=== PATIENT | male | born 1990 | race Caucasian/White ===

== ENCOUNTER → 2017-08-05 | Outpatient (CLI) | payer OTHER | LOC: BMCIMAGING 15:14 | PROVIDERS: ATTEND Family Medicine | DX: M25.531 Pain in right wrist (principal) ==

== ENCOUNTER → 2017-09-08 | Outpatient (CLI) | payer OTHER | LOC: BMCIMAGING 08:21 | PROVIDERS: ATTEND Physician Assistant | DX: S62.024D Nondisplaced fracture of middle third of navicular [scaphoid] bone of right wrist, subsequent encounter for fracture with routine healing (principal) ==

== ENCOUNTER 2017-09-20 05:57 | Day surgery (SDC) | payer OTHER ==
[~2017-09-20 05:57] MED LIST: LIDOCAINE 1% 2 ML INJ ID PRN; LR 1,000 ML IV ONE; ceFAZolin 2 GM/SWFI 2 GM/20 ML SYR IVP ONE
[2017-09-20] MEDS ORDERED: ceFAZolin 2 GM/DEXTROSE 100 ML IV ONE (06:00)
[2017-09-20] MEDS ORDERED: BUPIVACAINE/EPI 0.5% 30 ML SDV ONE (06:46)
[2017-09-20] MEDS ORDERED: MIDAZOLAM 2 MG/2 ML VIAL IVP ONE (06:59)
--- NOTE | 2017-09-20 06:59 | PDANEPAE ---
ANE History of Present Illness 26 yo for orif wrist fx ANE Past Medical History - Cardiovascular History Hx Hypertension: No Hx Arrhythmias: No Hx Chest Pain: No Hx Coronary Artery / Peripheral Vascular Disease: No Hx CHF / Valvular Disease: No Hx Palpitations: No - Pulmonary History Hx COPD: No Hx Asthma/Reactive Airway Disease: No Hx Recent Upper Respiratory Infection: No Hx Oxygen in Use at Home: No Hx Sleep Apnea: No Sleep Apnea Screening Result - Last Documented: Negative - Neurologic History Hx Cerebrovascular Accident: No Hx Seizures: No Hx Dementia: No - Endocrine History Hx Diabetes: No - Renal History Hx Renal Disorders: No - Liver History Hx Hepatic Disorders: No - Neurological & Psychiatric Hx Hx Neurological and Psychiatric Disorders: No - Cancer History Hx Cancer: No - Congenital Disorder History Hx Congenital Disorders: No - GI History Hx Gastrointestinal Disorders: Yes Gastrointestinal History Comment: possible "leaky gut" is being worked up - Other Health History Other Health History: psoriasis - Chronic Pain History Chronic Pain: No - Surgical History Prior Surgeries: wisdom teeth removal ANE Review of Systems Review of Systems: - Exercise capacity METS (RN): 6 METS ANE Patient History - Allergies Allergies/Adverse Reactions: amoxicillin [Amoxicillin] Allergy (Verified 09/19/17 15:58) as baby possible hives - Home Medications Home Medications: Herbals/Supplements -Info Only 09/19/17 [Last Taken 09/18/17] - NPO status NPO Since - Liquids (Date): 09/19/17 NPO Since - Liquids (Time): 22:00 NPO Since - Solids (Date): 09/19/17 NPO Since - Solids (Time): 20:00 - Anes Hx Anes Hx: no prior problems - Smoking Hx Smoking Status: Former smoker - Family Anes Hx Family Hx Anesthesia Complications: none ANE Labs/Vital Signs - Vital Signs Blood Pressure: 118/80 Heart Rate: 52 Respiratory Rate: 18 O2 Sat (%): 99 Height: 5 ft 8 in Weight: 58.967 kg ANE Physical Exam - Airway Neck exam: FROM Mallampati Score: Class 2 Mouth exam: normal dental/mouth exam - Pulmonary Pulmonary: no respiratory distress - Cardiovascular Cardiovascular: regular rate and rhythym - ASA Status ASA Status: I ANE Anesthesia Plan Anesthesia Plan: GA w LMA
--- NOTE | 2017-09-20 07:10 | PDHPUP ---
History & Physical Update H&P update statement: This history and physical update is based on an assessment of the patient which was completed after admission or registration (within 24 hours), but prior to the surgery/procedure. H&P update: H&P reviewed & patient examined, no change in patient's condition since H&P completed
[2017-09-20] MEDS ORDERED: fentaNYL 250 MCG/5 ML INJ ONE (07:19)
[2017-09-20] MEDS ORDERED: PROPOFOL/EMULSION 500 MG/50 ML BOTTLE IV ONE (07:19)
[2017-09-20] MEDS ORDERED: DEXAMETHASONE 4 MG/ML VIAL ONE (07:21)
[2017-09-20] MEDS ORDERED: ONDANSETRON 4 MG/2 ML VIAL ONE (07:21)
[2017-09-20] MEDS ORDERED: METOCLOPRAMIDE 10 MG/2 ML VIAL ONE (07:21)
[2017-09-20] MEDS ORDERED: PROPOFOL 200 MG/20 ML VIAL ONE (08:46)
[2017-09-20] MEDS ORDERED: fentaNYL 100 MCG/2 ML INJ IVP PRN (09:32)
[2017-09-20] MEDS ORDERED: HYDROmorphONE/DILAUDID 2 MG/ML INJ IVP PRN (09:32)
[2017-09-20] MEDS ORDERED: oxyCODONE IR 5 MG TAB PO PRN (09:32)
[2017-09-20] MEDS ORDERED: ONDANSETRON 4 MG/2 ML VIAL IVP PRN (09:32)
[2017-09-20] MEDS ORDERED: NALOXONE HCL 0.4 MG/ML INJ IVP PRN (09:32)
[2017-09-20] MEDS ORDERED: PROMETHAZINE HCL 25 MG/ML INJ IVP PRN (09:32)
--- NOTE | 2017-09-20 09:33 | POSTANESTH ---
Post Anesthetic Evaluation Cardiovascular Status: Normal, Stable Respiratory Status: Tx Decrease in SpO2 Level of Consciousness/Mental Status: Alert and Oriented Pain Control: Adequate, Prn Tx Ordered Nausea/Vomiting Control: Adequate, Prn Tx Ordered Complications Possibly Related to Anesthesia: None Noted
--- NOTE | 2017-09-20 10:17 | GOP ---
[f rep st] OPERATIVE REPORT DATE OF OPERATION: 09/20/2017 SURGEON: Clifton Moscoso MD ANESTHESIA: General. PREOPERATIVE DIAGNOSIS: Right mid waist scaphoid fracture. POSTOPERATIVE DIAGNOSIS: Right mid waist scaphoid fracture. PROCEDURE PERFORMED: Right scaphoid open reduction, internal fixation. FINDINGS: ESTIMATED BLOOD LOSS: 5 cc. INDICATIONS: This is a 26-year-old male who sustained this injury about 5 weeks ago in a fall. He i nitially presented to urgent care. X-rays were taken which were read as negative. About a month lat er, he continued to have pain in the wrist with activity. X-ray was taken, which showed a mid waist scaphoid fracture, now with some resorption at the fracture site and about a mm step-off on the obliq ue view. With a delayed presentation of 4 weeks or greater, this may slightly increase the chance of nonunion and a step-off of a mm or more in a scaphoid, both indications for surgical fixation. I di scussed the risks and benefits of both nonoperative and operative treatment with him. Operative cass tment also may offer him a decreased time to union and a faster return to activity. I discussed the risks of surgery. Risks include pain, bleeding, infection, damage to surrounding structures, delayed union, nonunion, stiffness, weakness, or nerve irritation. He understood all these risks and he wis hed to proceed. DESCRIPTION OF PROCEDURE: The patient was in see in the preoperative holding area. He was given opp ortunity to ask more questions. All of his questions were answered. Consent was signed. Surgical s ite was marked. He was transferred to the operative suite. Care was taken to transfer the patient [facility] to the operating room table. Care was taken to pad all bony prominences prior to inductio n of anesthesia. General anesthesia was induced by Anesthesia team. Time-out was called including S urgical and Anesthesia teams, confirming the surgical site and procedure to be performed. 2 g of Anc ef were given prior to incision. The right upper extremity was prepped and draped in the usual steri le fashion. Esmarch was used to exsanguinate the right upper extremity. Tourniquet was inflated to 250 mmHg. I made a 1.5 cm incision just distal to Chun's tubercle, identified the contents of the 4th extensor compartment, identified the EPL, and retracted the EPL laterally, identified the wrist c apsule, split the wrist capsule longitudinally, identified the scaphoid. I placed 1 of the guidewire s for the Acutrak mini into the proximal pole short of the fracture site and, with manipulation of th e guidewire, I passed it into the distal pole and checked the reduction. I was very happy with the r eduction, which was near anatomic, passed this down the central axis to the noted distal pole, measur ed the length, took about 6 off the length. I then placed another wire as a derotation wire. The re maining guidewire then passed into the trapezium to hold it in place. I then drilled just past the f racture site, then placed the screw, had a very good compression at the end. I removed all wires and checked the reduction, was very happy with the reduction and screw position. The screw was well bur ied beyond the subchondral surface. At this point, I irrigated the joint, irrigated the incision copra processor iously, and closed the capsule with 2-0 Vicryl, and then closed the skin in layered fashion with 4-0 Monocryl. Steri-Strips were applied. Sterile dressing was applied. We placed local and then placed the patient in a thumb spica splint. He was awakened from general anesthesia in stable condition an d taken to PACU in stable condition. IMPLANTS USED: Acutrak Acumed Mini 22 mm screw. POSTOPERATIVE CONDITION: Stable. POSTOPERATIVE PLAN: The patient will follow up with me in 10-14 days. We will transition him to a c ast. He will follow up with x-rays to assess healing. /[id number]/MODL
[2017-09-20 12:02] VITALS: BP 126/80
== END 2017-09-20 12:08 | disposition home or self-care (01) ==
LOC: FSGY 05:57
PROVIDERS: ATTEND Orthopaedic Surgery Hand Surgery
PROC: 0PSM04Z Reposition Right Carpal with Internal Fixation Device, Open Approach (ICD-10-PCS; principal; 2017-09-20 07:15)
DX: S62.021A Displaced fracture of middle third of navicular [scaphoid] bone of right wrist, initial encounter for closed fracture (principal); Y93.66 Activity, soccer; W19.XXXA Unspecified fall, initial encounter; Y99.8 Other external cause status; Z87.891 Personal history of nicotine dependence; Z88.0 Allergy status to penicillin
CPT/HCPCS: C1713; J0690; J1100; J2250; J2405; J2704; J2765; J3010

== ENCOUNTER → 2017-10-05 | Outpatient (CLI) | payer OTHER | LOC: BMCIMAGING 16:25 | PROVIDERS: ATTEND Orthopaedic Surgery Hand Surgery | DX: S62.021D Displaced fracture of middle third of navicular [scaphoid] bone of right wrist, subsequent encounter for fracture with routine healing (principal) ==

== ENCOUNTER → 2018-01-04 | Outpatient (CLI) | payer OTHER | LOC: BMCIMAGING 08:28 | PROVIDERS: ATTEND Orthopaedic Surgery Hand Surgery | DX: S62.021G Displaced fracture of middle third of navicular [scaphoid] bone of right wrist, subsequent encounter for fracture with delayed healing (principal) ==

== ENCOUNTER → 2018-01-28 | Outpatient (CLI) | payer OTHER | LOC: FIMAGING 09:21 | PROVIDERS: ATTEND Orthopaedic Surgery Hand Surgery | DX: S62.021D Displaced fracture of middle third of navicular [scaphoid] bone of right wrist, subsequent encounter for fracture with routine healing (principal); M81.8 Other osteoporosis without current pathological fracture ==

== ENCOUNTER → 2018-04-03 | Outpatient (CLI) | payer OTHER | LOC: FIMAGING 08:01 | PROVIDERS: ATTEND Orthopaedic Surgery Hand Surgery | DX: S62.021D Displaced fracture of middle third of navicular [scaphoid] bone of right wrist, subsequent encounter for fracture with routine healing (principal) ==